=== PATIENT | male | born 1970 | race Caucasian/White ===

== ENCOUNTER 2017-12-15 15:24 | Emergency (ER) | payer SELFPAY ==
[~2017-12-15] VITALS: Ht 182.9 cm; Wt 77.1 kg
--- NOTE | 2017-12-15 15:30 | NUR ---
Bill is in room 4a, Dr. Cuevas is at bedside.
--- NOTE | 2017-12-15 15:35 | NUR ---
RT called for HHN TX.
[2017-12-15] MEDS ORDERED: ALBUTEROL SULFATE 2.5 MG/3 ML NEBU ONE (15:43)
[2017-12-15] MEDS ORDERED: ALBUTEROL SULFATE 2.5 MG/ 0.5 ML NEBU ONE (15:44)
[2017-12-15] MEDS ORDERED: IPRATROPIUM BROMIDE 0.5 MG/2.5 ML NEBU ONE (15:44)
[2017-12-15] MEDS ORDERED: predniSONE 10 MG TABLET PO ONE (15:45)
[2017-12-15] MEDS ORDERED: IPRATROPIUM BROMIDE 0.5 MG/2.5 ML NEBU NEB ONE (15:45)
[2017-12-15] MEDS ORDERED: ALBUTEROL SULFATE 2.5 MG/3 ML NEBU NEB ONE (15:45)
[2017-12-15] MEDS ORDERED: predniSONE 50 MG TABLET ONE (15:52)
[2017-12-15] MEDS ORDERED: predniSONE 10 MG TABLET ONE (15:52)
[2017-12-15 15:53] LABS: BASOPHILS % (AUTO) 0.5 % (0.0-2.0); EOSINOPHILS # (AUTO) 0.2 K/uL (0.0-0.7); EOSINOPHILS % (AUTO) 2.4 % (0.0-7.0); HEMATOCRIT 44.3 % (36.7-47.1); HEMOGLOBIN 15.5 g/dL (12.5-16.3); LYMPHOCYTES # (AUTO) 2.2 K/uL (20.0-40.0); MEAN CORPUSCULAR HEMOGLOBIN 34.6 uug (23.8-33.4); MEAN CORPUSCULAR HGB CONC 35 g/dL (32.5-36.3); MONOCYTES # (AUTO) 0.9 K/uL (2.0-10.0); MONOCYTES % (AUTO) 8.7 % (0.0-11.0); NEUTROPHILS # (AUTO) 6.8 K/uL (1.8-8.9); NEUTROPHILS % (AUTO) 66.4 % (38.5-71.5); PLATELET COUNT (AUTO) 199 K/uL (152-348); RED BLOOD CELL COUNT(AUTO) 4.48 MIL/uL (4.06-5.63); WHITE BLOOD COUNT (AUTO) 10.2 K/uL (3.6-10.2)
[2017-12-15 16:03] LABS: CREATININE 0.9 mg/dL (0.6-1.3); POTASSIUM 3.4 mmol/L (3.5-5.1)
[2017-12-15 16:15] LABS: BILIRUBIN,DIRECT 0.3 mg/dL (0.0-0.2); TOTAL PROTEIN, SERUM 7.7 g/dL (6.4-8.2)
[2017-12-15] MEDS ORDERED: LORAZEPAM 2 MG/1 ML VIAL IM ONE (16:15)
[2017-12-15] MEDS ORDERED: LORAZEPAM 2 MG/1 ML VIAL ONE (16:30)
[2017-12-15] MEDS ORDERED: IV NORMAL SALINE 1000 ML BAG IV ONE (16:30)
[2017-12-15] MEDS ORDERED: LORAZEPAM 2 MG/1 ML VIAL IV ONE (16:30)
[2017-12-15] MEDS ORDERED: NORMAL SALINE FLUSH 10 ML DISP.SYRIN ONE (16:48)
[2017-12-15] MEDS ORDERED: IOHEXOL 350 100 ML INFUS..BTL ONE (16:49)
[2017-12-15] MEDS ORDERED: IV NORMAL SALINE 100 ML ONE (16:49)
--- NOTE | 2017-12-15 17:01 | NUR ---
ALL MEDS COMPLETED, PT SIGNED IV CONTRAST CONSENT. PT TO CT.
--- NOTE | 2017-12-15 18:09 | NUR ---
MSE COMPLETED, RX X3 GIVEN, IV D/C'D INTACT, PT AMBUKLATED W/O DIFF/TOOK ALL BELONGINGS.
[2017-12-15 18:11] VITALS: BP 144/72
== END 2017-12-15 18:12 | disposition home or self-care (01) ==
LOC: ER 15:24
DX: J45.909 Unspecified asthma, uncomplicated (principal); F41.9 Anxiety disorder, unspecified; F14.10 Cocaine abuse, uncomplicated
CPT/HCPCS: 36415; 70030-TC; 71045; 71275; 85025; A4663; J2060; J3490; J3590; J7030; J7512; Q9967